=== PATIENT | male | born 1960 | race Caucasian/White ===

== ENCOUNTER → 2020-12-25 09:08 | Outpatient (CLI) | payer MEDICARE, SELFPAY ==
[2020-12-25 18:09] LABS: SARS-CoV-2 RNA PCR Negative
== END ==
PROVIDERS: PCP Family Medicine; Visit Provider Physician Assistant Medical
DX: R68.89 Other general symptoms and signs (principal); Z20.822 Contact with and (suspected) exposure to COVID-19
CPT/HCPCS: C9803; U0003; U0005

== ENCOUNTER 2022-08-13 12:44 | Outpatient (CLI) | payer MEDICARE, SELFPAY ==
--- NOTE | ~2022-08-13 | XR_ITS ---
AP view of the pelvis and AP and lateral views of the right hip Clinical history: Pain Findings: No acute fracture or dislocation is seen. Osseous alignment is anatomic. There is minimal d egenerative spurring at the superolateral acetabular margins bilaterally. SI joints are intact. Soft tissues are unremarkable. 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 Reviewed, dictated and finalized at location . 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
--- NOTE | ~2022-08-13 | XR_ITS ---
Right Knee Technique: AP, lateral, and sunrise views were obtained. Clinical History: Pain Findings: No fracture or dislocation is seen. Osseous alignment is anatomic. Minimal patellar spurrin g noted. Soft tissues are unremarkable. No joint effusion is seen. Impression: Minimal patellar spurring. Reviewed, dictated and finalized at location . Impression: Minimal patellar spurring.
== END 2022-08-13 12:45 | disposition home or self-care (01) ==
PROVIDERS: PCP Family Medicine; Visit Provider Family Medicine
DX: M25.569 Pain in unspecified knee (principal); M25.559 Pain in unspecified hip; M77.8 Other enthesopathies, not elsewhere classified
CPT/HCPCS: 73502; 73564

== ENCOUNTER 2024-07-26 11:41 | Outpatient (CLI) | payer MEDICARE, SELFPAY ==
--- NOTE | ~2024-07-26 | XR_ITS ---
Left Knee Technique: AP, lateral, and sunrise views were obtained. Clinical History: Arthritis Findings: No fracture or dislocation is seen. Osseous alignment is anatomic. Joint spaces are preserv ed with minimal degenerative spurring at the patella and medial joint line. Soft tissues are unremark able. No joint effusion is seen. Impression: Minimal spurring, as above. Reviewed, dictated and finalized at location . Impression: Minimal spurring, as above.
--- NOTE | ~2024-07-26 | XR_ITS ---
Right Knee Technique: AP, lateral, and sunrise views were obtained. Clinical History: Arthritis Findings: No fracture or dislocation is seen. Osseous alignment is anatomic. There is mild medial com partment degenerative change. Soft tissues are unremarkable. No joint effusion is seen. Impression: Mild medial compartment degenerative change. Reviewed, dictated and finalized at [facility]. Impression: Mild medial compartment degenerative change.
--- OUTSIDE RECORDS SUMMARY | 2024-07-26 11:45 | XMS_ITS | Encounter Summary ---
Author Organization [facility] Address [address] [place] [address] Care Team Providers Care Retail Business Manager Name Role Phone Zach Diallo MD Primary Care Provider [phone] Treasure Ford MD Unavailable Toy Espinosa MD Unavailable [phone] Encounter Details Date Type Department Care Team (Late Contact Info) Description 02/12/2013 [facility] Outpatient Visit [facility] - Endocrinology [address] [facility], [address] [address] [place] [address] [address] Social History Tobacco Use Types Packs/Day Years Used Date Smoking Tobacco: Former Smokeless Tobacco: Current Chew Comments:still 1/2 can daily Alcohol Use Standard Drinks/Week Comments Yes 0 (1 standard drink = 0.6 oz pur e alcohol) Sex and Gender Information Value Date Recorded Sex Assigned at Male 07/05/2021 2:15 PM CDT Legal Sex Male 1:54 PM [employer] Gender Identity Male 07/05/2021 2:15 PM CDT Sexual Orientation Straight 07/05/2021 2: 15 PM CDT documented as of this encounter Plan of Treatment Upcoming Encounters Date Type Department Care Team (Late Contact Info) Description 08/20/2024 10:40 AM CDT Video Visit [facility] - Endocrinology [address] [facility], [facility] [address] [place] [address] Jessy Henderson, COST ENGINEER-ENDOSCOPY TECH [id number] [place] [phone] 11/30/2024 10:00 AM CDT Office Visit [facility] - Endocrinology [id number] [place] [phone] Treasure Ford MD [address] [place] [address] documented as of this encounter Visit Diagnoses Not on filedocumented in this encounter Care Teams Retail Business Manager Relationship Specialty Start Date End Date Zach Diallo MD [address] [place] [address] PCP - General 02/15/12 Treasure Frod MD [address] [place] [address] Endocrinology 10/14/14 Toy Espinosa [place] [facility] [place] [address] Neurology 07/13/16 documented as of this encounter
--- OUTSIDE RECORDS SUMMARY | 2024-07-26 11:45 | XMS_ITS | Encounter Summary ---
Author Organization [facility] Health Address [address] [place] [address] Care Team Providers Care Writer Technical Publications Name Role Phone Zach Diallo MD Primary Care Provider [phone] Treasure Ford MD Unavailable Toy Espinosa MD Unavailable [phone] Encounter Details Date Type Department Care Team (Late st Contact Info) Description 05/26/2015 [facility] Outpatient Visit [facility] [address] [place] [address] [place] [address] [facility] [address] [place] [address] Social History Tobacco Use Types Packs/Day Years Used Date Smoking Tobacco: Former Smokeless Tobacco: Current Chew Comments:still 1/2 can daily Alcohol Use Standard Drinks/Week Comments Yes 0 (1 standard drink = 0.6 oz pur e alcohol) Sex and Gender Information Value Date Recorded Sex Assigned at Male 07/05/2021 2:15 PM CDT 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 Gender Identity Male 07/05/2021 2:15 PM CDT Sexual Orientation Straight 07/05/2021 2: 15 PM CDT documented as of this encounter Plan of Treatment Upcoming Encounters Date Type Department Care Team (Late Contact Info) Description 08/20/2024 10:40 AM CDT Video Visit [facility] - Endocrinology [address] [place] [address], [address] [place] [address] Jessy Henderson, DOCUMENT RESTORER-THERMOPLASTIC TECHNICIAN [address] [place] [phone] 11/30/2024 10:00 AM CDT Office Visit [facility] - Endocrinology [address] [place] [address], [address] [phone] Treasure Ford MD [address] [place] [phone] documented as of this encounter Visit Diagnoses Not on filedocumented in this encounter Care Teams Writer Technical Publications Relationship Specialty Start Date End Date Zach Diallo MD [address] [place] [address] PCP - General 02/15/12 Treasure Ford MD [address] [place] [address] Endocrinology 10/14/14 [facility]spin[facility] [place] [address] Neurology 07/13/16 documented as of this encounter
--- OUTSIDE RECORDS SUMMARY | 2024-07-26 11:45 | XMS_ITS | Encounter Summary ---
Author Organization [facility] Address [address] [place] [address] Care Team Providers Care Chemical Dependency Nurse Name Role Phone Zach Diallo MD Primary Care Provider [phone] Treasure Ford MD Unavailable [phone] Toy Espinosa MD Unavailable [phone] Encounter Details Date Type Department Care Team (Late st Contact Info) Description 08/21/2012 [facility] Outpatient Visit EXTERNAL NON-[facility] DEPT Treasure Ford [place] [id number] [place] [address] [address] [place] [address] Social History Tobacco Use Types Packs/Day Years Used Date Smoking Tobacco: Some Days Smokeless Tobacco: Current Alcohol Use Standard Drinks/Week Comments Yes 0 (1 standard drink = 0.6 oz pur e alcohol) Sex and Gender Information Value Date Recorded Sex Assigned at Male 07/05/2021 2:15 PM CDT 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 Gender Identity Male 07/05/2021 2:15 PM CDT Sexual Orientation Straight 07/05/2021 2: 15 PM CDT documented as of this encounter Plan of Treatment Upcoming Encounters Date Type Department Care Team (Late st Contact Info) Description 08/20/2024 10:40 AM CDT Video Visit [facility] - Endocrinology [address] [place] [address], [address] [place] [address] Jessy Henderson, KINDERGARTEN ASSISTANT-BLADE SHARPENER [address] [facility] [address] [place] [phone] 11/30/2024 10:00 AM CDT Office Visit [facility] - Endocrinology [address] [place] [address], [address] [phone] Treasure Ford [place] [address] [place] [address] documented as of this encounter Visit Diagnoses Not on filedocumented in this encounter Care Teams Chemical Dependency Nurse Relationship Specialty Start Date End Date Zach Diallo MD [address] [place] [phone] PCP - General 02/15/12 Treasure Ford MD [address] [place] [address] Endocrinology 10/14/14 Toy Espinosa MD [facility] [place] [address] Neurology 07/13/16 documented as of this encounter
--- OUTSIDE RECORDS SUMMARY | 2024-07-26 11:45 | XMS_ITS | Clinical Summary ---
Author Organization [facility] Address [address] [place] [address] Care Team Providers Care Automotive Lot Attendant Name Role Phone Zach Diallo MD Primary Care Provider [phone] Treasure Ford MD Unavailable [phone] Toy Espinosa MD Unavailable [phone] Source Comments [facility],non-owned Affiliates and Associated Physician Practices is amultiple site organization consisting of ambulatory clinics and hospital sitesin [place], [place], [place] and [place]. This disclosure is being madepursuant to the Care Everywhere program and may not contain all information available regarding this patient. Last updated 17.[facility] Allergies Active Allergy Reactions Criticality Noted Date Comments Penicillins Rash Low 07/13/2011 Sulfa Drugs Rash Low 07/13/2011 Sulfanilamide Other 02/09/2021 Bupropion Rash Low 07/13/2011 Medications * Be aware that medications may not be up to date on this document. Alwaysverify current medications with the patient. Sanford-3 Fatty Acids (FISH OIL) 1000 MG CPDR Take by mouth. Ac tive DULoxetine (Cymbalta) 60 MG capsule Take 1 (one) capsule by mouth once daily Active lidocaine (LIDODERM) 5 % patch Apply 1 (one) patch to skin once daily 018 Active metoprolol succinate XL 24hr (TOPROL XL) 25 MG tablet Take 1 (one) tablet by mouth once daily 018 Active fluticasone propionate (FLONASE) 50 MCG/ACT nasal spray [place] 2 (two) sprays into each nostril as needed 2 Active sildenafil (VIAGRA) 100 MG tablet TK 1 T PO QD PRN APPROXIMATELY 1 HOUR BEFORE SEXUAL ACTIVITY 1 Active azelastine (ASTEPRO) 205.5 MCG/SPRAY nasal spray [place] 1 (one) spray into each nostril as needed (seasonal allergies) 3 Active NARCAN 4 MG/0.1ML nasal spray ANNA REP ALN 0 Active lisinopril-hydro CHLOROthiazide (PRINZIDE; ZESTORETIC) 10-12.5 MG tablet Take 1 (one) tablet by mouth once daily Active Alcohol Swabs (ALCOHOL PADS) 70 % USE FOUR TIMES DAILY 400 Each 3 Active Lancet Devices (EASY MINI EJECT LANCING DEVICE) MISC USE DIRECTED. 1 Each 1 Active HYDROcodone-acet aminophen (NORCO) 10-325 MG tablet Take 1 (one) tablet by mouth every 4 hours as needed pain Active Insulin Pen Needle (BD Pen Needle Margarita U/F) 32G X 4 MM MISCIndications: Uncontrolled type 2 diabetes mellitus with hyperglycemia (HCC) Inject 1 Each subcutaneously once daily 90 Each 4 Active rosuvastatin (Crestor) 20 MG tablet Take 1 (one) tablet by mouth once daily 90 tablet 3 Active vitamin D, ergocalciferol, (Drisdol) 1.25 MG (44676 UT) capsule Take 1 (one) capsule by mouth every 30 days 3 capsule 2 Active diazePAM (Valium) 2 MG tablet 1 (one) tablet at bedtime Active finasteride (Proscar) 5 MG tablet Take 1 (one) tablet by mouth once daily Active meloxicam (Mobic) 15 MG tablet Take 1 (one) tablet by mouth once daily Active omeprazole (PriLOSEC) 40 MG capsule Take 1 (one) capsule by mouth daily before breakfast Active traZODone (Desyrel) 50 MG tablet Take 1 (one) tablet by mouth at bedtime 024 Active insulin glargine (Lantus SoloStar) penIndications:U ncontrolled type 2 diabetes mellitus with hyperglycemia ([facility]) Inject 25 (twenty five) Units subcutaneously every 24 hours 30 mL 3 024 Active Jardiance 25 MG tablet TAKE 1 TABLET BY MOUTH ONCE DAILY 90 tablet 3 024 Active clotrimazole-bet amethasone (Lotrisone) 1-0.05 % cream APPLY TO AFFECTED AREA(S) TOPICALLY TWICE DAILY FOR 14 DAYS 90 g 1 024 Active Continuous Glucose Hostess (FreeStyle Enedina 3 [place]) DEVIIndications: Uncontrolled type 2 diabetes mellitus with hyperglycemia, with long-term current use of insulin ([facility]) Use 1 device once daily 1 Each 025 Active glipiZIDE CR 24hr (Glucotrol XL) 5 MG tablet TAKE 1 TABLET BY MOUTH DAILY WITH BREAKFAST 90 tablet 1 025 Active Testosterone 1.62 % GEL Apply 3 Pump to skin once daily 225 g 2 025 Active clotrimazole-bet amethasone (Lotrisone) 1-0.05 % cream APPLY TOPICALLY TO THE AFFECTED AREA TWICE DAILY FOR 14 DAYS 45 g 025 Active Ozempic, 2 MG/DOSE, 8 MG/3ML penIndications:U ncontrolled type 2 diabetes mellitus with hyperglycemia, with long-term current use of insulin ([facility]) INJECT 2 MG SUBCUTANEOUSLY EVERY 7 DAYS REPLACING THE 1 MG WEEKLY DOSING 9 mL 3 025 Active mupirocin (Bactroban) 2 % ointment APPLY TOPICALLY TO AFFECTED AREA(S) 3 TIMES DAILY 22 g 025 Active Semaglutide (2 MG/DOSE) 8 MG/3ML Subcutaneous Solution Pen-injector (Ozempic (2 MG/DOSE)) Inject 2 (two) mg subcutaneously every 7 days Replacing the 1 mg weekly dosing 9 mL 3 024 2024 Discontinued(R eodonavan) mupirocin (Bactroban) 2 % ointment APPLY TOPICALLY TO AFFECTED AREA(S) 3 TIMES DAILY 22 g 024 2024 Discontinued clotrimazole-bet amethasone (Lotrisone) 1-0.05 % cream APPLY TOPICALLY TO THE AFFECTED AREA TWICE DAILY FOR 14 DAYS 45 g 025 2024 Discontinued Active Problems Problem Noted Date Diagnosed Date Uncontrolled type 2 diabetes mellitus with hyper glycemia 06/16/2022 Secondary polycythemia 04/20/2019 Overview (04/20/2019): Due to testosterone supplementation Decreased testosterone level 07/28/2013 Overview (02/24/2021): Testosterone deficiency Hypogonadism, male 02/15/2012 Type 2 diabetes mellitus 07/27/2011 Overview (02/24/2021): DMII WO CMP UNCNTRLD Essential hypertension 07/27/2011 Overview (12/12/2014): Pure hypercholesterolemia 07/27/2011 Vitamin D deficiency 07/27/2011 Overview (12/12/2014): Encounters Date Type Department Care Team Description 07/04/2024 Refill [facility] - Endocrinology [address] [place] [address], [address] [phone] Jessy Henderson, PEGGY-NURSES ASSISTANT Refill Request 07/04/2024 Refill [facility] - Endocrinology [address] [place] [phone] Treasure Ford MD Refill Request 05/28/2024 Refill [facility] Endocrinology [address] [place] [phone] Treasure Ford MD MEDICATION REFILL 05/17/2024 10:20 AM WEB SITE DEVELOPER Office Visit [facility] - Endocrinology [address] [place] [address], [address] [phone] Treasure Ford MD Uncontrolled type 2 diabetes mellitus with hyperglycemia, with long-term current use of insulin (Primary Dx); Essential hypertension; Pure hypercholesterolemia; Hypogonadism, male from Last 3 Months Immunizations Immunization Administration Dates Next Due INFLUENZA VACCINE, CELL CULT URE, QUADR. (FLUCELVAX QUADRIVALENT; 6MO+) (CCIIV4) 01/08/2020 Family History Medical History Relation Name Comments CVA<65(female) Mother Diabetes Mother Diabetes Sister Thyroid Disease Neg Hx Relation Name Status Comments Mother Sister Social History Tobacco Use Types Packs/Day Years Used Date Smoking Tobacco: Former Smokeless Tobacco: Current Chew Comments:still 1/2 can daily Alcohol Use Standard Drinks/Week Comments Yes 0 (1 standard drink = 0.6 oz pur e alcohol) occasionally PHQ-2 Answer Date Recorded PHQ2 TOTAL SCORE 0 09/08/2020 Sex and Gender Information Value Date Recorded Sex Assigned at Male 07/05/2021 2:15 PM CDT Legal Sex Male 1:54 PM WEB SITE DEVELOPER Gender Identity Male 07/05/2021 2:15 PM CDT Sexual Orientation Straight 07/05/2021 2: 15 PM CDT Last Filed Vital Signs Vital Sign Reading Time Taken Comments Blood Pressure 142/72 05/17/2024 10:05 AM WEB SITE DEVELOPER Pulse 80 05/17/2024 10:05 AM WEB SITE DEVELOPER Temperature 36.7 C (98.1 F) 06/23/2021 11:36 AM CDT Respiratory Rate 18 02/09/2021 11:14 AM WEB SITE DEVELOPER Oxygen Saturation 98% 05/17/2024 10:05 AM WEB SITE DEVELOPER Inhaled Oxygen Concentration - - Weight 94.8 kg (209 lb) 05/17/2024 10:05 AM WEB SITE DEVELOPER Height 180.3 cm (5' 11 ) 05/17/2024 10:05 AM WEB SITE DEVELOPER Body Mass Index 29.15 05/17/2024 10:05 AM WEB SITE DEVELOPER Plan of Treatment Upcoming Encounters Date Type Department Care Team (Late st Contact Info) Description 08/20/2024 10:40 AM CDT Video Visit [facility] - Endocrinology [address] [place] [address], [address] [place] [address] Jessy Henderson, SEX CRIMES DETECTIVE-NURSES ASSISTANT [address] [place] [address] [place] [phone] 11/30/2024 10:00 AM CDT Office Visit [facility] - Endocrinology [address], [address] [place] [address] [place] [address] [place] [address] Health Maintenance Due Date Last Done Comments COLON MONITORING 1958 COLONOSCOPY - COLON CA SCREENING 1958 CT COLONOGRAPHY - COLON CA SCREENING 1958 FIT - COLON CA SCREENING 1958 FLEX SIG - COLON CA SCREENING 1958 HIV SCREENING 1973 HEPATITIS C SCREENING 07/29/1976 DTAP/TDAP/TD VACCINES (1 - Tdap) 1977 PNEUMOCOCCAL VACCINE 50+ (1 of 2 - PCV) 1977 ZOSTER VACCINE (1 of 2) 2008 Respiratory Syncytial Virus (RSV) Vaccine Pt: or over 60 yrs (1 - Risk 60-74 years 1-dose series) 2018 DIABETES-FOOT EXAM WITH MONOFILAMENT 04/02/2020 04/02/2019 AAA SCREENING 08/04/2023 COVID-19 VACCINE ( season) 2023 02/18/2021, 06/29/2020, 06/01/2020 DEPRESSION SCREENING 03/14/2024 MEDICARE AWV CALENDAR YEAR 2024 INFLUENZA VACCINE (Season Ended) 2024 02/05/2022, 02/18/2021, 01/08/2020, Additional history exists DIABETES-HGB A1C 11/17/2024 05/17/2024, , 11/17/2023, Additional history exists DIABETES - URINE PROTEIN SCREENING 05/09/2025 05/09/2024, 10/27/2023, 11/11/2021, Additional history exists DIABETES-SERUM CREATININE 05/09/20252024, 02/07/2024, 10/27/2023, Additional history exists DIABETES RETINOPATHY SCREENING 10/19/2025 10/20/2023, 10/19/2021 COLOGUARD (AGES 45-75) - COLON CA SCREENING 04/19/2027 04/19/2024 Colorectal Cancer Screening 04/19/2027 HEPATITIS B VACCINE Aged Out No longe r eligible based on patient's age to complete this topic HIB VACCINE Aged Out No longer eligi ble based on patient's age to complete this topic HPV VACCINE Aged Out No longer eligi ble based on patient's age to complete this topic MENINGOCOCCAL (Group B) VACCINE SHARED DECISION-MAKING Aged Out No longer eligible based on patient's age to complete this topic MENINGOCOCCAL GROUPS A/C/Y/W VACCINE Aged Out No longer eligible based on patient's age to complete this topic Procedures Procedure Name Priority Date/Time Associated Diagnosis Comments HEMOGLOBIN A1C - POINT OF CARE (AMB) Routine 05/17/2024 Uncontrolled type 2 diabetes mellitus with hyperglycemia, with long-term current use of insulin GLUCOSE - POINT OF CARE (AMB) STL Routine 05/17/2024 Uncontrolled type 2 diabetes mellitus with hyperglycemia, with long-term current use of insulin FRUCTOSAMINE Routine 05/09/2024 12:44 PM WEB SITE DEVELOPER Uncontrolled type 2 diabetes mellitus with hyperglycemia CBC W AUTO DIFFERENTIAL Routine 05/09/2024 12:44 PM WEB SITE DEVELOPER Uncontrolled type 2 diabetes mellitus with hyperglycemia MICROALB/CREAT RATIO URINE RANDOM PANEL Routine 05/09/2024 12:43 PM WEB SITE DEVELOPER Uncontrolled type 2 diabetes mellitus with hyperglycemia TESTOSTERONE BIOAVAILABLE Routine 05/09/2024 12:43 PM WEB SITE DEVELOPER Uncontrolled type 2 diabetes mellitus with hyperglycemia COMPREHENSIVE METABOLIC PANEL Routine 05/09/2024 12:43 PM WEB SITE DEVELOPER Uncontrolled type 2 diabetes mellitus with hyperglycemia LIPID PROFILE Routine 05/09/2024 12:43 PM WEB SITE DEVELOPER Uncontrolled type 2 diabetes mellitus with hyperglycemia HM DIABETES EYE EXAM Routine 10/20/2023 1:17 PM CDT from Last 3 Months or Most Recently Relevant to Health Maintenance Results * (ABNORMAL) GLUCOSE - POINT OF CARE (AMB) STL (05/17/2024) Glucose 172(A) 60 - 100 mg/dL Lot # [id number] Expiration Date 08/27/2025 QC Verified Yes Yes Blood BLOOD SPECIMEN / Unknown 05/17/2024 Treasure Ford MD LAB - POINT OF CARE ALFREDO DAVE Final Result * HEMOGLOBIN A1C - POINT OF CARE (HgbA1C) (05/17/2024) [facility] Hemoglobin A1c POCT 6.7 % Expiration Date 11/01/2025 Lot # [id number] QC Verified Yes Yes Blood BLOOD SPECIMEN / Unknown 05/17/2024 Treasure Ford MD LAB - POINT OF CARE ALFREDO DAVE Final Result * FRUCTOSAMINE (05/09/2024 12:44 PM WEB SITE DEVELOPER) [facility] Fructosamine 227 0 - 285 umol/L [facility] ACCOUNT BILL Comment: Published reference interval for apparently healthy subjects between age 20 and 60 is 205 - 285 umol/L and in a poorly controlled diabetic population is 228 - 563 umol/L with a mean of 396 umol/L. Blood BLOOD SPECIMEN / Unknown 05/09/2024 12:44 PM WEB SITE DEVELOPER 05/09/2024 Narrative [facility] ACCOUNT BILL - 05/10/2024 1:09 PM WEB SITE DEVELOPER Performed at: 01 - [facility] [id number] Cheerleading Coach: Adolfo Duron PhD, Phone: [phone] us Jessy Henderson SEX CRIMES DETECTIVE-NURSES ASSISTANT LAB - CHEMISTRY ORDERABLE S Final Result [facility] ACCOUNT BILL [address] [place] [address] * (ABNORMAL) CBC W/ DIFFERENTIAL (05/09/2024 12:44 PM WEB SITE DEVELOPER) [facility] WBC 9.3 3.4 - 10.8 x10E3/uL [facility] ACCOUNT BILL RBC 5.69 4.14 - 5.80 x10E6/uL [facility] ACCOUNT BILL Hemoglobin 14.5 13.0 - 17.7 g/dL [facility] ACCOUNT BILL Hematocrit 46.5 37.5 - 51.0 % [facility] ACCOUNT BILL MCV 82 79 - 97 fL [facility] ACCOUNT BILL MCH 25.5(L) 26.6 - 33.0 pg [facility] ACCOUNT BILL MCHC 31.2(L) 31.5 - 35.7 g/dL [facility] ACCOUNT BILL RDW 14.1 11.6 - 15.4 % [facility] ACCOUNT BILL Platelet Count 267 150 - 450 x10E3/uL [facility] ACCOUNT BILL Granulocytes % 80 Not Estab. % [facility] ACCOUNT BILL Lymphocytes % 13 Not Estab. % [facility] ACCOUNT BILL Monocytes % 5 Not Estab. % [facility] ACCOUNT BILL Eosinophils % 2 Not Estab. % [facility] ACCOUNT BILL Basophils % 0 Not Estab. % [facility] ACCOUNT BILL Granulocytes Absolute 7.4(H) 1.4 - 7.0 x10E3/uL [facility] ACCOUNT BILL Lymphocytes Absolute 1.2 0.7 - 3.1 x10E3/uL [facility] ACCOUNT BILL Monocytes Absolute 0.4 0.1 - 0.9 x10E3/uL [facility] ACCOUNT BILL Eosinophils Absolute 0.2 0.0 - 0.4 x10E3/uL [facility] ACCOUNT BILL Basophils Absolute 0.0 0.0 - 0.2 x10E3/uL [facility] ACCOUNT BILL Immature Granulocytes 0 Not Estab. % [facility] ACCOUNT BILL Immature Granulocytes Absolute 0.0 0.0 - 0.1 x10E3/uL [facility] ACCOUNT BILL Blood BLOOD SPECIMEN / Unknown 05/09/2024 12:44 PM WEB SITE DEVELOPER 05/09/2024 Narrative [facility] ACCOUNT BILL - 05/10/2024 8:11 AM WEB SITE DEVELOPER Performed at: 01 - [facility] [address] [id number] Cheerleading Coach: Adolfo Duron PhD, Phone: [phone] us Jessy Henderson SEX CRIMES DETECTIVE-NURSES ASSISTANT LAB - HEMATOLOGY ORDERABL ES Final Result [facility] ACCOUNT BILL [address] [place] [address] * MICROALB/CREAT RATIO URINE RANDOM PANEL (05/09/2024 12:43 PM WEB SITE DEVELOPER) Creatinine Urine 73.7 Not Estab. mg/dL [facility] ACCOUNT BILL Microalbumin Urine <3.0 Not Estab. ug/mL [facility] ACCOUNT BILL Microalbumin/Crea tinine Ratio <4 0 - 29 mg/g creat [facility] ACCOUNT BILL Comment: Normal: 0 - 29 Moderately increased: 30 - 300 Severely increased: >300 Urine URINE SPECIMEN OBTAINED BY CLEAN CATCH PROCEDURE / Unknown 05/09/2024 12:43 PM WEB SITE DEVELOPER 05/09/2024 Narrative [facility] ACCOUNT BILL - 05/10/2024 10:10 AM WEB SITE DEVELOPER Performed at: 01 - [address] [id number] Cheerleading Coach: Adolfo Duron PhD, Phone: [phone] Jessy Henderson SEX CRIMES DETECTIVE-NURSES ASSISTANT LAB - URINE CHEMISTRY ORD ERABLES Final Result [facility] ACCOUNT BILL [address] [place] [address] * TESTOSTERONE BIOAVAILABLE (05/09/2024 12:43 PM WEB SITE DEVELOPER) Testosterone 375 ng/dL [facility] ACCOUNT BILL Comment: This test was developed and its performance characteristics determined by [facility]. It has not been cleared or approved by the Food and Drug Administration. Reference Range: Adult Males >18 years 264 - 916 This [facility] LC/MS-MS method is currently certified by the CDC Hormone Standardization Program (HoST). Adult male reference interval is based on a population of healthy nonobese males (BMI <30) between 19 and 39 years old. Marquis, et.al. JCEM 2017,102;8999-8730 PMID: [id number]. Testosterone Bioavailable 165 ng/dL [facility] ACCOUNT BILL Comment: Reference Range: Males (50 - 69y): 95 - 285 Testosterone Bioavailable 44.1 % [facility] ACCOUNT BILL Blood BLOOD SPECIMEN / Unknown 05/09/2024 12:43 PM WEB SITE DEVELOPER 05/09/2024 Narrative [facility] ACCOUNT BILL - 05/15/2024 11:07 PM WEB SITE DEVELOPER Performed at: 01 - [facility] [address] [place], [place] [id number] Cheerleading Coach: Edgar Walker MD, Phone: [phone] us Jessy Mulligan Santiago SEX CRIMES DETECTIVE-NURSES ASSISTANT LAB - CHEMISTRY ORDERABLE S Final Result [facility] ACCOUNT BILL [address] [place] [address] * (ABNORMAL) COMPREHENSIVE METABOLIC PANEL (05/09/2024 12:43 PM WEB SITE DEVELOPER) Glucose 118(H) 70 - 99 mg/dL [facility] ACCOUNT BILL BUN 13 8 - 27 mg/dL [facility] ACCOUNT BILL Creatinine 0.95 0.76 - 1.27 mg/dL [facility] ACCOUNT BILL eGFR by CKD-EPI 89 >59 mL/min/1.7 3 [facility] ACCOUNT BILL BUN/Creatinine Ratio 14 10 - 24 [facility] ACCOUNT BILL Sodium 139 134 - 144 mmol/L [facility] ACCOUNT BILL Potassium 4.4 3.5 - 5.2 mmol/L [facility] ACCOUNT BILL Chloride 97 96 - 106 mmol/L [facility] ACCOUNT BILL CO2 27 20 - 29 mmol/L [facility] ACCOUNT BILL Calcium 9.1 8.6 - 10.2 mg/dL [facility] ACCOUNT BILL Protein Total 6.5 6.0 - 8.5 g/dL [facility] ACCOUNT BILL Albumin 3.9 3.9 - 4.9 g/dL [facility] ACCOUNT BILL Globulin Total 2.6 1.5 - 4.5 g/dL [facility] ACCOUNT BILL Bilirubin Total 0.4 0.0 - 1.2 mg/dL [facility] ACCOUNT BILL Alkaline Phosphatase 71 44 - 121 IU/L [facility] ACCOUNT BILL AST 16 0 - 40 IU/L [facility] ACCOUNT BILL ALT 9 0 - 44 IU/L [facility] ACCOUNT BILL Blood BLOOD SPECIMEN / Unknown 05/09/2024 12:43 PM WEB SITE DEVELOPER 05/09/2024 Narrative [facility] ACCOUNT BILL - 05/10/2024 8:11 AM WEB SITE DEVELOPER [facility]formed [facility]: [facility] - [facility] [address] [place], [place] [id number] Cheerleading Coach: Adolfo Duron PhD, Phone: [phone] Jessy Henderson SEX CRIMES DETECTIVE-NURSES ASSISTANT LAB - CHEMISTRY ORDERABLE S Final Result Performing Organization Address [facility] de Phone Number [facility] ACCOUNT BILL [address] [place] [address] * LIPID PROFILE (05/09/2024 12:43 PM WEB SITE DEVELOPER) Cholesterol 148 100 - 199 mg/dL [facility] ACCOUNT BILL Triglycerides 127 0 - 149 mg/dL [facility] ACCOUNT BILL HDL Cholesterol 44 >39 mg/dL [facility] ACCOUNT BILL VLDL Calculated 23 5 - 40 mg/dL [facility] ACCOUNT BILL LDL Calculated 81 0 - 99 mg/dL [facility] ACCOUNT BILL Blood BLOOD SPECIMEN / Unknown 05/09/2024 12:43 PM WEB SITE DEVELOPER 05/09/2024 Narrative [facility] ACCOUNT BILL - 05/10/2024 8:11 AM WEB SITE DEVELOPER Performed at: 01 - [facility] [place] [id number] [place], [place] [id number] Cheerleading Coach: Adolfo Duron PhD, Phone: [phone] Jessy Henderson APRN-NURSES ASSISTANT LAB - CHEMISTRY ORDERABLE S Final Result Performing Organization Address [facility] de Phone Number [facility] ACCOUNT BILL [address] [place] [address] * DIABETES EYE EXAM (10/20/2023 1:17 PM CDT) Stone [facility]z HEALTH MAINTENANCE Final Result from Last 3 Months or Most Recently Relevant to Health Maintenance Insurance [facility] MANAGED MEDICARE ADV Care Teams Automotive Lot Attendant Relationship Specialty Start Date End Date Zach Diallo MD [address] [place] [address] PCP - General 02/15/12 [place] Ford [place] [id number] [place] [address] Endocrinology 10/14/14 Toy Espinosa MD [address] [place] [address] Neurology 07/13/16
--- OUTSIDE RECORDS SUMMARY | 2024-07-26 11:45 | XMS_ITS | Encounter Summary ---
Author Organization [facility] Address [address] [place] [address] Care Team Providers Care Night Worker Name Role Phone Zach Diallo MD Primary Care Provider [phone] Treasure Ford MD Unavailable Toy Espinosa MD Unavailable [phone] Encounter Details Date Type Department Care Team (Late Contact Info) Description 03/04/[address] [facility] Outpatient Visit [facility] - Endocrinology [address] [facility], [address] [address] [place] [address] [address] Social History Tobacco Use Types Packs/Day Years Used Date Smoking Tobacco: Former Smokeless Tobacco: Current Chew Comments:still 1/2 can daily Alcohol Use Standard Drinks/Week Comments Yes 0 (1 standard drink = 0.6 oz pur e alcohol) Sex and Gender Information Value Date Recorded Sex Assigned at Male 07/05/2021 2:15 PM CDT Legal Sex Male 1:54 PM TRUCK BODY BUILDER Gender Identity Male 07/05/2021 2:15 PM CDT Sexual Orientation Straight 07/05/2021 2: 15 PM CDT documented as of this encounter Plan of Treatment Upcoming Encounters Date Type Department Care Team (Late Contact Info) Description 08/20/2024 10:40 AM CDT Video Visit [facility] - Endocrinology [address] [facility] [address] [place] [address] Jessy Henderson, SALES TECHNICIAN-SUPERVISOR [employer] [id number] [place] [phone] 11/30/2024 10:00 AM CDT Office Visit [facility] - Endocrinology [address] [place] [phone] Treasure Ford MD [address] [place] [phone] documented as of this encounter Visit Diagnoses Not on filedocumented in this encounter Care Teams Night Worker Relationship Specialty Start Date End Date Zach Diallo MD [address] [place] [address] PCP - General 02/15/12 Treasure Ford MD [address] [place] [address] Endocrinology 10/14/14 Toy Espinosa MD [facility] [place] [address] Neurology 07/13/16 documented as of this encounter
== END 2024-07-26 11:42 | disposition home or self-care (01) ==
PROVIDERS: PCP Family Medicine; Visit Provider Family Medicine
DX: M17.0 Bilateral primary osteoarthritis of knee (principal)
CPT/HCPCS: 73564